=== PATIENT | female | born 1995 | race African-American/Black ===

== ENCOUNTER 2019-03-14 22:38 | Emergency (ER) | payer OTHER ==
[~2019-03-14] VITALS: Ht 165.1 cm; Wt 97.3 kg
[2019-03-14] MEDS ORDERED: LEVE250T55 PO (22:50)
[2019-03-14] MEDS ORDERED: TRAZ-252 PO (22:50)
[2019-03-14] MEDS ORDERED: DIPH50 PO (22:50)
[2019-03-14] MEDS ORDERED: BUSP5TAB20 PO (22:50)
[2019-03-14 23:01] LABS: GLUCOSE,POINT OF CARE 96 MG/DL (70-110)
[2019-03-15] MEDS ORDERED: IBUPROFEN 800 MG TABLET PO ONE (01:00)
[2019-03-15 03:55] VITALS: BP 105/77
== END 2019-03-15 04:42 | disposition home or self-care (01) ==
LOC: EMS 22:39
DX: S63.501A Unspecified sprain of right wrist, initial encounter (principal); F17.200 Nicotine dependence, unspecified, uncomplicated; F12.90 Cannabis use, unspecified, uncomplicated; Z91.018 Allergy to other foods; W19.XXXA Unspecified fall, initial encounter; Y93.89 Activity, other specified; Y92.89 Other specified places as the place of occurrence of the external cause; Y99.8 Other external cause status